=== PATIENT | female | born 1965 | race Caucasian/White ===

== ENCOUNTER → 2016-09-19 | Outpatient (CLI) | payer BC ==
--- NOTE | 2016-09-19 21:56 | WWHP ---
DATE OF SERVICE: 09/19/2016 CHIEF COMPLAINT: Patient is here for her routine gynecologic exam. HPI: This is a 50-year-old G3, P3 with an LMP of 09/14/2016. She states her periods are still fairly regular every month, and she is status post tubal ligation. She is requesting a prescription for Chantix to help her to stop smoking. She was given a prescription for this 2 years ago, but only took it for a few days and then discontinued it. PAST MEDICAL HISTORY: Irritable bowel syndrome and colitis. She does have recurrent oral cold sores 4 to 5 times a year. MEDICATIONS: 1. Valtrex 500 mg daily p.r.n. 2. Naproxen p.r.n. for menstrual cramps. ALLERGIES: No known drug allergies. PAST SURGICAL HISTORY: Bladder suspension surgery 1998, and multiple colonoscopies and the most recent was in 08/30 and tubal ligation with appendectomy in 1993, cholecystectomy 2001 bunionectomy 1982. 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 SOCIAL HISTORY: She smokes 1 pack of cigarettes per day and has about 4 alcoholic drinks per year and denies drug use. 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 REVIEW OF SYSTEMS: Weight has been stable. She denies respiratory, cardiac, or GI problems. PHYSICAL EXAM: Blood pressure 108/57. Height 5 feet 5 inches. Weight 150 pounds. Temperature 97.3, pulse 76. This is a well-developed, well-nourished white female who is alert and oriented x3 in no acute distress. NECK: Supple without mass or thyromegaly. CHEST AND LUNGS: Clear to auscultation. HEART: Regular rate and rhythm. Breasts are without mass or discharge. Axillary exam is negative for adenopathy. BACK: Negative for CVA tenderness. ABDOMEN: Soft, nontender, without palpable masses. HEENT: There is palpable lymph node measuring approximately 8 to 10 mm in the area of the left tonsillar lymph node region on the left side. This is smooth, nontender and slightly mobile. She states she has noticed this for about 6 months but has not changed during the time she has noticed it. PELVIC EXAM: Normal external genitalia. Cervix and vagina appear normal. There is a small amount of old menstrual blood in the back of the vagina. There is no active bleeding. There is no evidence of prolapse. The uterus is midposition, nongravid size and nontender. There are no palpable adnexal masses or tenderness. Rectovaginal exam negative for mass or tenderness and is negative for occult blood. EXTREMITIES: Nontender. IMPRESSION: 1. 50-year-old premenopausal female with normal gynecologic exam. 2. Smoker who would like to quit smoking. 3. History of mild dysmenorrhea. 4. Benign feeling left tonsillar lymph node. PLAN: 1. Pap smear was performed. 2. Self-breast examination was discussed. 3. Mammogram was done on 08/25/2016 and was probably benign, but they did suggest repeat right breast diagnostic mammogram in 6 months, and a slip was given to patient for this. 4. She is instructed to check the area of the left tonsillar lymph node on a regular basis and if she is noticing any changes to call for possible biopsy or re-evaluation. 5. Valtrex 1000 mg 2 p.o. q.12 hours x2 at the onset of oral cold sores and this will have four refills on that and she will use p.r.n. 6. Anaprox DS 1 p.o. b.i.d. p.r.n. for menstrual cramps. 7. Chantix starter pack +2 continuation packs as directed. She was instructed to have a quit date within 14 days of starting medication. 8. I have recommended that she establish with a primary care physician. Dr. Eleni Kulkarni name was given to patient for this. 9. She will return in one year.
== END | disposition home or self-care (01) ==

== ENCOUNTER → 2017-09-25 | Outpatient (CLI) | payer BC ==
[2017-09-25 11:20] LABS: HCT 43.6 % (34.0-46.0); HGB 14.3 gm/dL (11.4-16.0); MCH 30.4 pg (25.0-35.0); MCHC 32.8 g/dL (31.0-37.0); MCV 92.7 fL (80.0-100.0); Mean Platelet Volume 7.6; Platelet Count 168 k/uL (150-450); RDW 14.8 % (11.5-15.5); WBC 4.3 k/uL (3.8-10.6)
[2017-09-25 11:42] LABS: ALT 58 U/L (9-52); AST 32 U/L (14-36); Albumin 4.2 g/dL (3.5-5.0); Alkaline Phosphatase 68 U/L (38-126); Anion Gap 9 mmol/L; Blood Urea Nitrogen 22 mg/dL (7-17); Calcium 8.9 mg/dL (8.4-10.2); Carbon Dioxide 22 mmol/L (22-30); Chloride 109 mmol/L (98-107); Cholesterol 215 mg/dL (<200); Glucose 102 mg/dL (74-99); Potassium 4.6 mmol/L (3.5-5.1); Sodium 140 mmol/L (137-145); Total Bilirubin 0.5 mg/dL (0.2-1.3); Total Protein 7.1 g/dL (6.3-8.2)
--- NOTE | 2017-09-25 14:33 | WWHP ---
[facility] - HISTORY AND PHYSICAL DATE OF DICTATION: 09/25/2017 CHIEF COMPLAINT: The patient is here for her routine gynecologic exam and mammogram. HPI: This is a 51-year-old, G3, P3 with an LMP of 07/2017. She states her periods were regular prior to April of 2017. She went about 3 months without a period and then had a period in July of 2017. During the 3 months of amenorrhea, she states she had significant hot flashes and these have improved since then. The patient is status post tubal ligation. PAST MEDICAL HISTORY: Irritable bowel syndrome and colitis. She also has a history of recurrent oral cold sores and typically has 4 to 5 outbreaks per year. MEDICATIONS: 1. Valtrex 2 g p.o. q.12 hours x1 day, p.r.n. on the onset of the cold sores. 2. Naproxen p.r.n. for menstrual cramps. ALLERGIES: No known drug allergies. PAST SURGICAL HISTORY: Colonoscopies multiple times in the past and the most recent was in 08/2017. Bladder suspension surgery in 1998, tubal ligation with appendectomy in 1993, cholecystectomy 2001, bunionectomy in 1982. 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 FAMILY HISTORY: Mother has a brain aneurysm and atrial fibrillation and osteoporosis. Grandfather had colon cancer. Grandfather had prostate cancer and grandmother had diabetes and heart disease. SOCIAL HISTORY: She quit smoking in 10/2016. She has about 4 alcohol-containing drinks per year and denies drug use. She has been since 2004 and this is her second marriage. 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 REVIEW OF SYSTEMS: She states she has gained about 35 pounds over the last 4 months. She denies respiratory, cardiac or GI problems. PHYSICAL EXAM: Blood pressure 117/56, height 5 feet 5 inches, weight 175 pounds. Temperature 96.4, pulse 66, BMI 29. This is a well-developed, well-nourished, white female, who is alert and oriented x3, in no acute distress. HEENT: She does have an oral cold sore on her upper lip. The rest of HEENT is within normal limits. NECK: Supple without mass or thyromegaly. CHEST AND LUNGS: Clear to auscultation. HEART: Regular rate and rhythm. Breasts are without mass or discharge. Axillary exam is negative for adenopathy. Back negative for CVA tenderness. ABDOMEN: Soft, nontender, without palpable masses. PELVIC EXAM: Normal external genitalia. Cervix and vagina appear normal without significant atrophy. There is no evidence of prolapse. The uterus is mid position, nongravid size and nontender. There are no palpable adnexal masses or tenderness. Rectovaginal exam is negative for mass or tenderness and is negative for occult blood. EXTREMITIES: Nontender. IMPRESSION: 1. A 51-year-old, perimenopausal female with recent oligomenorrhea and intermittent vasomotor symptoms. 2. History of oral cold sores. PLAN: 1. Pap smear was deferred since she had a normal one 1 year ago. 2. Self breast examination was discussed. 3. Mammogram will be done today. 4. Osteoporosis prevention was discussed. We will plan on getting a bone density test after she is considered menopausal and this will be done prior to the age of 60 because of her family history. 5. Prescription for Valtrex was given to the patient, which she will use at the onset of oral cold sores. She will take 2 g p.o. q.12 hours x1 day p.r.n. A prescription was given for the patient with 5 refills. 6. Weight control was discussed. We have discussed the importance of good nutrition and regular exercise. I have asked her to consider Weight Watchers if she continues to have issues with weight gain. 7. She is requesting screening blood work since she does not have a primary care physician. I have recommended that she establish with a primary care physician. Labs today will include CBC, TSH, comprehensive Chem panel and screening cholesterol. 8. She will return in 1 year. MMODL / IJN: [id number] /
--- NOTE | 2017-09-26 09:04 | MM ---
Reason for exam: screening (asymptomatic). Last mammogram was performed 1 year and 1 month ago. Physical Findings: A clinical breast exam by your physician is recommended on an annual basis and results should be correlated with mammographic findings. MG Screening Mammo w CAD Bilateral CC and MLO view(s) were taken. Prior study comparison: August 25, 2016, right breast MG work up mamm w CAD RT. August 03, 2016, bilateral MG screening mammo w CAD. The breast tissue is extremely dense which could obscure a lesion on mammography. There is no discrete abnormality. No significant changes when compared with prior studies. ASSESSMENT: Negative, BI-RAD 1 RECOMMENDATION: Routine screening mammogram of both breasts in 1 year.
== END | disposition home or self-care (01) ==
LOC: WWCWWP 09:17
PROVIDERS: ATTEND Obstetrics & Gynecology
DX: Z12.31 Encounter for screening mammogram for malignant neoplasm of breast (principal); Z00.00 Encounter for general adult medical examination without abnormal findings
CPT/HCPCS: 36415; 77067; 80053; 82465; 84443; 85027

== ENCOUNTER → 2019-01-01 | Outpatient (CLI) | payer BC ==
[2019-01-01 09:49] VITALS: BP 138/81; PULSE 71; RESP 16; TEMP 98.2; BMI 26.9
--- NOTE | 2019-01-01 13:44 | P.HPOB ---
History of Present Illness H&P Date: 01/01/19 Chief Complaint: The patient is here for her routine gynecologic exam and ma mmogram. This is a 53-year-old G3 PIII with an LMP of July 2018. The patient states her menstrual periods were fairly regular up until July 2018. She has been amenorrheic since then. She has been experiencing worsening hot flashes during the past one year. She is complaining of increasing urinary leakage was coughing and sneezing. She had previously had some type of bladder suspension in 1993. Review of Systems The patient has lost 13 pounds over the last year. She denies respiratory, cardiac, or G.I. problems. Past Medical History Additional Past Medical History / Comment(s): Glaucoma. IBS/colitis. Recurrent oral cold sores. 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 History of Any Multi-Drug Resistant Organisms: None Reported Past Surgical History: Appendectomy, Bladder Surgery, Cholecystectomy, Tubal Ligation Additional Past Surgical History / Comment(s): Bunion R&L foot, Bladder suspension 1998, R&L elbow surgery. Colonoscopy 2017 (3rd). Past Psychological History: No Psychological Hx Reported Smoking Status: Current every day smoker (One quarter of a pack of cigarettes per day.) Past Alcohol Use History: Occasional (4 per month) Past Drug Use History: None Reported Additional History: She has been since 2004 and this is her 2nd marriage. 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 She currently does not work outside the home. - Past Family History Mother Family Medical History: AFIB Additional Family Medical History / Comment(s): Brain aneurysm and osteoporosis. Grandfather Family Medical History: Cancer Additional Family Medical History / Comment(s): One grandfather had colon cancer in one grandfather had prostate cancer. Medications and Allergies Home Medications Medication Instructions Recorded Confirmed Type No Known Home Medications 01/01/19 01/01/19 History Allergies Allergy/AdvReac Type Severity Reaction Status Date / Time No Known Allergies Allergy Unverified 01/01/19 09:43 Exam Vital Signs Temp Pulse Resp BP 01/01/19 09:44 98.2 F 71 16 138/81 Intake and Output 12/31/18 01/01/19 01/01/19 22:59 06:59 14:59 Other: Weight 73.482 kg Height 5'5", weight 162 pounds, BMI 27.0. This is a well-developed well-nourished white female who is alert and oriented times 3 in no acute distress. HEENT: Within normal limits. NECK: Supple without mass or thyromegaly. CHEST AND LUNGS: Clear to auscultation. HEART: Regular rate and rhythm. BREASTS: Are without mass or discharge. AXILLARY EXAM: Negative for adenopathy. BACK: Negative for CVA tenderness. ABDOMEN: Soft, nontender, without palpable masses. PELVIC EXAM: Normal external genitalia with minimal atrophy. Cervix and vagina appear normal with minimal atrophy. There is no unusual discharge. There is no evidence of prolapse at rest. With cough and Valsalva there is mild to moderate urethral mobility. No urinary leakage was demonstrated. The uterus is midposition, nongravid size and nontender. There are no palpable adnexal masses or tenderness. RECTAL EXAM: rectovaginal exam is negative for mass or tenderness and is negative for occult blood. EXTREMITIES: Nontender. IMPRESSION: 1. 53-year-old perimenopausal female with a five-month history of amenorrhea and one year of worsening vasomotor symptoms. 2. Stress urinary incontinence, possible mixed incontinence with urethral mobility with coughing and Valsalva. 3. Previous bladder suspension in the past. From her description, I believe this may have been a RPU procedure with an abdominal incision. 4. Family history of osteoporosis in her mother. PLAN: 1. Pap smear was performed. 2. Self breast awareness was discussed with the patient. 3. Screening mammogram will be done today. 4. Osteoporosis prevention was discussed. I have stressed the importance of adequate calcium, vitamin D and regular exercise. Recommended amounts of calcium and vitamin D were also discussed. She is requesting bone density testing because of her mother's history of osteoporosis. The order slip was given to the patient for this. 5. The patient will be referred to Dr. Erazo, the gynecologic urologist at [facility] for further evaluation and possible treatment of her stress urinary incontinence. 6.She was advised to return in one year for her annual well woman exam.
--- NOTE | 2019-01-02 10:54 | MM ---
Reason for exam: screening (asymptomatic). Last mammogram was performed 1 year and 3 months ago. Physical Findings: A clinical breast exam by your physician is recommended on an annual basis and results should be correlated with mammographic findings. MG Screening Mammo w CAD Bilateral CC and MLO view(s) were taken. Prior study comparison: September 25, 2017, bilateral MG screening mammo w CAD. August 25, 2016, right breast MG work up mamm w CAD RT. The breast tissue is heterogeneously dense. This may lower the sensitivity of mammography. Finding: There is a 5 mm obscured round mass in the slight upper outer quadrant, middle position of the left breast. ASSESSMENT: Incomplete: need additional imaging evaluation, BI-RAD 0 RECOMMENDATION: Special view mammogram of the left breast. If lesion persists on supplemental views, image directed ultrasound is recommended. [facility] will attempt to contact patient to return for supplemental views and ultrasound if indicated.
== END ==
LOC: WWCWWP 09:19
PROVIDERS: ATTEND Obstetrics & Gynecology
DX: Z12.31 Encounter for screening mammogram for malignant neoplasm of breast (principal)
CPT/HCPCS: 77067

== ENCOUNTER → 2019-01-16 | Outpatient (CLI) | payer BC ==
--- NOTE | 2019-01-21 09:44 | MM ---
Reason for exam: additional evaluation requested from abnormal screening. Last mammogram was performed less than 1 month ago. Physical Findings: Nurse did not find any significant physical abnormalities on exam. MG 3D Work Up W/Cad LT Spot compression CC and spot compression LM view(s) were taken of the left breast. Prior study comparison: January 01, 2019, bilateral MG screening mammo w CAD. September 25, 2017, bilateral MG screening mammo w CAD. The breast tissue is heterogeneously dense. This may lower the sensitivity of mammography. The previously seen abnormality resolves on additional views and appears as fibroglandular tissue compatible with summation. No suspicious abnormality. These results were verbally communicated with the patient and result sheet given to the patient on 01/16/19. ASSESSMENT: Negative, BI-RAD 1 RECOMMENDATION: Return to routine screening mammogram schedule for both breasts.
== END | disposition home or self-care (01) ==
LOC: RADMAMWWP 13:22
PROVIDERS: ATTEND Obstetrics & Gynecology
DX: R92.8 Other abnormal and inconclusive findings on diagnostic imaging of breast (principal)
CPT/HCPCS: 77061; 77065

== ENCOUNTER → 2019-01-29 | Outpatient (CLI) | payer BC ==
--- NOTE | 2019-01-29 13:20 | BD ---
EXAMINATION TYPE: Axial Bone Density DATE OF EXAM: 01/29/2019 COMPARISON: 12.08.2003 CLINICAL HISTORY: Osteoporosis. Height: 66 Weight: 160.8 FRAX RISK QUESTIONS: Alcohol (3 or more units per day): no Family History (Parent hip fracture): no Glucocorticoids (More than 3mos): no (Ex: prednisone, prednisolone, methylprednisolone, dexamethasone, and hydrocortisone). History of Fracture in Adulthood: yes Secondary Osteoporosis: 1. Type 1 Diabetes: no 2. Hyperthyroidism: no 3. Menopause before 45: no 4. Malnutrition: yes 5. Chronic liver disease: no Rheumatoid Arthritis: no Current Tobacco Use: yes RISK FACTORS HISTORY OF: Family History of Osteoporosis: yes Active: yes Diet low in dairy products/other sources of calcium: yes Postmenopausal woman: age 52 Lost more than 2 inches in height since high school: no MEDICATIONS: naproxen Additional History: EXAM MEASUREMENTS: Bone mineral densitometry was performed using the [employer]. Bone mineral density as measured about the Lumbar spine is: ----- L1-L4(G/cm2): 1.389 T Score Values are as follows: ----- L2: 1.4 ----- L3: 2.0 ----- L4: 1.8 ----- L1-L4: 1.7 Bone mineral density has: decreased -5.7 % since study of: 12.08.2003 Bone mineral density about the R hip (g/cm2): 0.994 Bone mineral density about the L hip (g/cm2): 1.028 T Score values are as follows: -----R Neck: -0.3 -----L Neck: -0.1 -----R Total: 0.6 -----L Total: 0.9 Bone mineral density has: decreased -6.1 % since study of: 12.08.2003 IMPRESSION: Normal (Values between +1 and -1 indicate normal bone mass). Consider repeating this study in 5 year s or sooner if there is some new clinical indication. NOTE: T-SCORE=SD OF THE YOUNG ADULT MEAN.
--- NOTE | 2019-01-29 14:22 | P.PN ---
Progress Note - Text Progress Note Date: 01/29/19 OUTPATIENT FOLLOW-UP NOTE TEST(S)/RESULTS: bone density test from 01/29/2019 was normal. There was about a 5% decrease compared to her 2003 bone density test. METHOD OF NOTIFICATION: the patient was notified by phone. PATIENT COMMENTS: the patient understands the results. DIAGNOSIS: normal bone density test. DISCUSSION: I have stressed the importance of adequate calcium, vitamin D and regular exercise. PLAN: we will plan and repeating the bone density test in 5 to 6 years.She was advised to return in one year for her annual well woman exam.
== END | disposition home or self-care (01) ==
LOC: RADBDWWP 12:38
PROVIDERS: ATTEND Obstetrics & Gynecology
DX: N95.1 Menopausal and female climacteric states (principal); Z82.62 Family history of osteoporosis
CPT/HCPCS: 77080

== ENCOUNTER → 2019-04-15 | Outpatient (CLI) | payer BC ==
--- NOTE | 2019-04-15 14:02 | MR ---
EXAMINATION TYPE: MR angio head wo con DATE OF EXAM: 04/15/2019 COMPARISON: NONE HISTORY: Family history /Vertigo TECHNIQUE: Time of flight images focusing on the [place] were performed without contrast.. 2-D and 3-D postprocessing imaging is performed. FINDINGS: The internal carotid arteries bifurcate normally into A1 and M1 segments. The A2 segments are normal . Middle cerebral artery branches are normal. Anterior communicating artery is patent. The right posterior communicating artery is patent. The left posterior communicating artery is patent. Vertebrobasilar arteries within the [id number] are normal. Posterior cerebral vasculature is norm al. No suspicious aneurysm or aneurysmal dilatation is evident. No obstructions are identified. No significant flow-limiting stenosis is evident. Incidental note is made of leftward nasal septal deviation. IMPRESSION: Major intracranial vascular demonstrate no evidence of hemodynamically significant stenos is, focal occlusion, dissection, nor aneurysmal outpouching.
== END | disposition home or self-care (01) ==
LOC: RADMRIMAIN 09:43
PROVIDERS: ATTEND Internal Medicine
DX: R42 Dizziness and giddiness (principal); Z82.49 Family history of ischemic heart disease and other diseases of the circulatory system
CPT/HCPCS: 70544

== ENCOUNTER → 2020-12-22 | Outpatient (CLI) | payer BC ==
[2020-12-22 11:59] VITALS: BP 131/81; PULSE 69; RESP 18; TEMP 98.3
--- NOTE | 2020-12-22 13:20 | P.HPOB ---
History of Present Illness H&P Date: 12/22/20 Chief Complaint: The patient is here for her routine gynecologic exam and ma mmogram. This is a 55-year-old with an LMP of 2018. The patient is without gynecologic complaints and denies any postmenopausal bleeding. She was treated for a urinary tract infection 15 days ago because of the urinary frequency and dysuria. She completed a seven-day course of antibiotics and her symptoms are much improved. Today she feels like she is urinating slightly more frequently t adame normal and is requesting to have the urine rechecked for infection. Review of Systems The patient's weight has been stable over the last year. She denies respiratory, cardiac, or G.I. problems. : As in the HPI. Past Medical History Past Medical History: No Reported History Additional Past Medical History / Comment(s): Glaucoma. IBS. Recurrent oral cold sores. 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 History of Any Multi-Drug Resistant Organisms: None Reported Past Surgical History: Appendectomy, Cholecystectomy, Tubal Ligation Additional Past Surgical History / Comment(s): Bunion R&L foot, Bladder suspension, R&L elbow surgery. Colonoscopy 2017. Past Psychological History: No Psychological Hx Reported Smoking Status: Current every day smoker (Half pack per day) Past Alcohol Use History: Occasional (4 per month) Past Drug Use History: None Reported Additional History: She has been since 2004 and this is her second marriage. 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 - Past Family History Mother Family Medical History: AFIB Additional Family Medical History / Comment(s): Brain aneurysm and osteoporosis. Grandfather Family Medical History: Cancer Additional Family Medical History / Comment(s): One grandfather had colon cancer in one grandfather had prostate cancer. Medications and Allergies Home Medications Medication Instructions Recorded Confirmed Type Naproxen 250 mg PO DAILY PRN 12/22/20 12/22/20 History valACYclovir [Valtrex] 500 mg PO DAILY 12/22/20 12/22/20 History Allergies Allergy/AdvReac Type Severity Reaction Status Date / Time No Known Allergies Allergy Unverified 12/22/20 11:53 Exam Vital Signs Temp Pulse Resp BP Pulse Ox 12/22/20 11:54 98.3 F 69 18 131/81 97 Intake and Output 12/21/20 12/22/20 12/22/20 22:59 06:59 14:59 Other: Weight 74.389 kg Height 5 feet 4-1/2 inches, weight 164 pounds, BMI 27.7. This is a well-developed well-nourished white female who is alert and oriented times 3 in no acute distress. HEENT: Within normal limits. NECK: Supple without mass or thyromegaly. CHEST AND LUNGS: Clear to auscultation. HEART: Regular rate and rhythm. BREASTS: Are without mass or discharge. AXILLARY EXAM: Negative for adenopathy. BACK: Negative for CVA tenderness. ABDOMEN: Soft, nontender, without palpable masses. PELVIC EXAM: Normal external genitalia with mild atrophy. Cervix and vagina appear normal is mild atrophy. There is no unusual discharge. There is no evidence of prolapse. The uterus is midposition, nongravid size and nontender. There are no palpable adnexal masses or tenderness. RECTAL EXAM: Rectovaginal exam is negative for mass or tenderness and is negative for occult blood. EXTREMITIES: Nontender. IMPRESSION: 1. 55-year-old menopausal female with normal gynecologic exam. 2. Mild urinary frequency following a 7 day treatment for a UTI. Possible residual infection versus residual symptoms without infection. PLAN: 1. Pap smear cotest was performed. 2. Self breast awareness was discussed with the patient. 3. Screening mammogram was done today. 4. Urine has been obtained for clean catch midstream urinalysis and urine culture. 5. Osteoporosis prevention was discussed. I have stressed the importance of adequate calcium, vitamin D and regular exercise. Recommended amounts of calcium and vitamin D were also discussed. The patient was initially planning to have a bone density test done today, however since she had a normal bone density test done less than 2 years ago, I do not feel it is warranted at this time and we will plan on redoing the bone density test in approximately 3 years. 6. She was advised to return in one year for her annual well woman exam.
[2020-12-22 14:34] LABS: Appearance,Urine Clear (Clear); Bacteria,Urine Rare /hpf; Bilirubin,Urine Negative (Negative); Blood,Urine Negative (Negative); Color,Urine Yellow; Glucose,Urine (UA) Negative (Negative); Ketones,Urine Negative (Negative); Leukocyte Esterase,Urine Trace (Negative); Mucus,Urine Rare /hpf; Nitrite,Urine Negative (Negative); PH, Urine 6.5 (5.0-8.0); Protein,Urine Negative (Negative); RBC,Urine 1 /hpf (0-5); Specific Gravity,Urine 1.022 (1.001-1.035); Squamous Epithelial Cell,Urine 1 /hpf (0-4); Urobilinogen,Urine <2.0 mg/dL (<2.0); WBC,Urine 1 /hpf (0-5)
--- NOTE | 2020-12-23 09:39 | P.PN ---
Progress Note - Text Progress Note Date: 12/23/20 Urinalysis from 12/22/20 showed trace leukocyte esterase and is otherwise negative. The patient was notified by phone. This is probably a residual finding after her UTI was treated 1-2 weeks ago. Await urine culture.
--- NOTE | 2020-12-23 10:17 | MM ---
Reason for exam: screening (asymptomatic). Last mammogram was performed 1 year and 11 months ago. Physical Findings: A clinical breast exam by your physician is recommended on an annual basis and results should be correlated with mammographic findings. MG 3D Screening Mammo W/Cad Bilateral CC and MLO view(s) were taken. Prior study comparison: January 16, 2019, left breast MG 3d work up w/cad LT. January 01, 2019, bilateral MG screening mammo w CAD. The breast tissue is extremely dense which could obscure a lesion on mammography. No significant changes when compared with prior studies. ASSESSMENT: Negative, BI-RAD 1 RECOMMENDATION: Routine screening mammogram of both breasts in 1 year.
== END ==
LOC: WWCWWP 11:22
PROVIDERS: ATTEND Obstetrics & Gynecology
DX: Z01.419 Encounter for gynecological examination (general) (routine) without abnormal findings (principal); Z12.31 Encounter for screening mammogram for malignant neoplasm of breast; R35.0 Frequency of micturition; F17.210 Nicotine dependence, cigarettes, uncomplicated
CPT/HCPCS: 77063; 77067; 81001; 87086

== ENCOUNTER → 2024-07-08 | Outpatient (CLI) | payer BC ==
[2024-07-08 14:01] VITALS: BP 138/83; PULSE 72; RESP 16; TEMP 98.7
--- NOTE | 2024-07-08 17:08 | P.HPOB ---
History of Present Illness H&P Date: 07/08/24 Chief Complaint: The patient is here for her routine gynecologic exam and ma mmogram. This is a 58-year-old G3, P3 with an LMP of 2018. She is without gynecologic complaints and denies any postmenopausal bleeding. She states she still has a lump near the left mandible and she thinks it has gotten slightly larger over the past year. Her surgeon evaluated this last year and thought it was probably benign. She is requesting a prescription for Valtrex for when she develops perioral cold sores. She states the Valtrex is very helpful. Review of Systems The patient has lost 3 pounds over the last year. She denies respiratory, cardiac, or G.I. problems. Past Medical History Past Medical History: No Reported History Additional Past Medical History / Comment(s): Glaucoma. IBS. Recurrent oral cold sores. PAST [employer] HISTORY: She has no history of STDs. History of Any Multi-Drug Resistant Organisms: None Reported Past Surgical History: Appendectomy, Cholecystectomy, Tubal Ligation Additional Past Surgical History / Comment(s): Bunion R&L foot, Bladder suspension, R&L elbow surgery. Colonoscopy 2022(next after 5yr). Past Psychological History: No Psychological Hx Reported Smoking Status: Current every day smoker (About one quarter of a pack of c igarettes per day.) Past Alcohol Use History: Occasional (3 drinks per month.) Past Drug Use History: None Reported Additional History: She has been since 2004 and this is her second marriage. She is not sexually active. 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 - Past Family History Mother Family Medical History: AFIB, Cancer Additional Family Medical History / Comment(s): Brain aneurysm and osteoporosis. from esophageal cancer 2022. Grandfather Family Medical History: Cancer Additional Family Medical History / Comment(s): One grandfather had colon cancer in one grandfather had prostate cancer. Medications and Allergies Home Medications Medication Instructions Recorded Confirmed Type Naproxen 250 mg PO DAILY PRN 12/22/20 07/08/24 History valACYclovir HCL [Valtrex] 500 mg PO DAILY 12/22/20 07/08/24 History Latanoprost [Latanoprost 0.005%] 1 drop BOTH EYES DAILY 07/08/24 07/08/24 History Allergies Allergy/AdvReac Type Severity Reaction Status Date / Time No Known Allergies Allergy Unverified 07/08/24 13:56 Exam Vital Signs Temp Pulse Resp BP Pulse Ox 07/08/24 13:58 98.7 F 72 16 138/83 98 Intake and Output 07/08/24 07/08/24 07/08/24 06:59 14:59 22:59 Other: Weight 73.028 kg Height 5 feet 5 inches, weight 161 pounds, BMI 26.8. This is a well-developed well-nourished white female who is alert and oriented times 3 in no acute distress. HEENT: There is a small mass measuring approximately 2.0 x 1.5 cm near the top of the left mandible. This seems to be between the mandible and skin. It is somewhat rubbery in consistency and seems to be mobile from the bone beneath it. This is nontender. HEENT is otherwise within normal limits. NECK: Supple without mass or thyromegaly. CHEST AND LUNGS: Clear to auscultation. HEART: Regular rate and rhythm. BREASTS: Are without mass or discharge. AXILLARY EXAM: Negative for adenopathy. BACK: Negative for CVA tenderness. ABDOMEN: Soft, nontender, without palpable masses. PELVIC EXAM: Normal external genitalia mild atrophy. Cervix and vagina appear normal no atrophy. There is no unusual discharge. There is no evidence of prolapse. The uterus is midposition, nongravid size and nontender. There are no palpable adnexal masses or tenderness. RECTAL EXAM: Rectovaginal exam is negative for mass or tenderness and is negative for occult blood. EXTREMITIES: Nontender. IMPRESSION: 1. 58-year-old menopausal female with normal gynecologic exam. 2. Distant near the mandible which is similar compared to her 2022 exam. Differential diagnosis will include a parotid gland mass or lymph node. 3. Perioral cold sores which the patient states is significantly improved with Valtrex upon for symptoms. PLAN: 1. Pap smear was deferred since she had a negative Pap smear cotest on 12/22/2020. 2. Self breast awareness was discussed with the patient. We have also discussed symptoms associated with inflammatory breast cancer. 3. Screening mammogram will be done today. 4. Osteoporosis prevention was discussed. I have stressed the importance of adequate calcium, vitamin D and regular exercise. Recommended amounts of calcium and vitamin D were also discussed. Bone density test will be done today. 5. I have recommended that she see somebody regarding the mass near the left mandible near the angle of her jaw. She is considering again seeing her general surgeon, or possibly seeing an ENT doctor. She understands she can also be evaluated by her PCP for this. 6. Valtrex 500 mg p.o. twice daily x 3 days at the onset of symptoms. Electronic prescription will be sent to [facility] pharmacy in [facility]. 7. She was advised to return in one year for her annual well woman exam.
--- NOTE | 2024-07-09 13:26 | BD ---
EXAMINATION TYPE: Axial Bone Density DATE OF EXAM: 07/08/2024 CLINICAL HISTORY: 58 years old Female. ICD-10 CODE: Z780 POSTMENOPAUSAL WITHOUT HRT Height: 65 Weight: 158.4 FRAX RISK QUESTIONS: Alcohol (3 or more units per day): no Family History (Parent hip fracture): no Glucocorticoids (More than 3mos): no (Ex: prednisone, prednisolone, methylprednisolone, dexamethasone, and hydrocortisone). History of Fracture in Adulthood: yes Secondary Osteoporosis: 1. Type 1 Diabetes: no 2. Hyperthyroidism: no 3. Menopause before 45: no 4. Malnutrition: no 5. Chronic liver disease: no Rheumatoid Arthritis: no Current Tobacco Use: yes RISK FACTORS HISTORY OF: Surgery to Spine/Hip(right/left)/Wrist (right/left): no EXAM MEASUREMENTS: Bone mineral densitometry was performed using the [employer] System. Bone mineral density as measured about the Lumbar spine is: ----- L1-L4(G/cm2): 1.200 T Score Values are as follows: ----- L1: 0.6 ----- L2: 0.4 ----- L3: 0.1 ----- L4: -0.3 ----- L1-L4: 0.2 Z Score Values are as follows: ----- L1: 1.6 ----- L2: 1.4 ----- L3: 1.1 ----- L4: 0.7 ----- L1-L4: 1.2 Bone mineral density has: decreased -13.6 % since study of: 01.29.2019 Bone mineral density about the R hip (g/cm2): 0.938 Bone mineral density about the L hip (g/cm2): 0.972 T Score values are as follows: -----R Neck: -1.1 -----L Neck: -0.8 -----R Total: -0.5 -----L Total: -0.3 Z Score values are as follows: -----R Neck: 0.0 -----L Neck: 0.3 -----R Total: 0.2 -----L Total: 0.5 Bone mineral density has: decreased -13.3% since study of: 5.15.2019 FRAX%s: The graph provided illustrates a 12.5% chance for a major osteoporotic fx and a 1.4% chance f or the hips probability for fx in 10 years time. IMPRESSION: Normal (Values between +1 and -1 indicate normal bone mass). Consider repeating this study in 5 year s or sooner if there is some new clinical indication. NOTE: T-SCORE=SD OF THE YOUNG ADULT MEAN. [facility], , 07/09/2024 1:23 PM
--- NOTE | 2024-07-10 10:19 | MM ---
Reason for Exam: Screening (asymptomatic). Last screening mammogram was performed 12 month(s) ago. Patient History: Menarche at age 12. First Full-Term at age 19. Patient has history of breast feeding. Risk Values: Zoë 5 year model risk: 1.2%. NCI Lifetime model risk: 6.0%. Prior Study Comparison: 01/16/2019 Left Diagnostic Mammogram, [facility]. 12/22/2020 Bilateral Screening Mammogram, [facility]. 07/03/2023 Bilateral MG 3D screening mammo w/cad, [facility]. Tissue Density: The breasts are heterogeneously dense, which may obscure small masses. Findings: Analyzed By CAD. There is no suspicious group of microcalcifications or new suspicious mass in either breast. Overall Assessment: Negative, BI-RAD 1 Management: Screening Mammogram of both breasts in 1 year. . Patient should continue monthly self-breast exams. A clinical breast exam by your physician is recommended on an annual basis. This exam should not preclude additional follow-up of suspicious palpable abnormalities. Note on Zoë scores and lifetime risk: 1. A Zoë score greater than 3% is considered moderate risk. If this is the case, consider specialist referral to assess eligibility for a risk reducing agent. 2. If overall lifetime risk for the development of breast cancer is 20% or higher, the patient may qualify for future screening with alternating mammogram and breast MRI. [facility], , 07/10/2024 10:17 AM. Electronically signed and approved by: Sj Erazo M.D. Radiolog[facility]
== END ==
LOC: WWCWWP 13:45
PROVIDERS: ATTEND Obstetrics & Gynecology
CPT/HCPCS: 77063; 77067; 77080